=== PATIENT | male | born 1935 | race Caucasian/White ===

== ENCOUNTER 2020-11-25 15:00 | Emergency (ER) | payer MEDICARE, BC ==
--- NOTE | 2020-11-25 15:46 | EDM.PDOC ---
ED HPI GENERAL MEDICAL PROBLEM - General Chief Complaint: Bite:Animal, Insect Stated Complaint: POSSIBLE TICK BITE ON LT ARM Time Seen by Provider: 11/25/20 15:35 Source of Information: Reports: Patient, RN History Limitations: Reports: No Limitations - History of Present Illness INITIAL COMMENTS - FREE TEXT/NARRATIVE: 2 nights ago patient woke up with a very itchy arm. He scratched it he is not sure if he scratched something away or not. Today he noticed a very reddened circumference with a white center on his forearm. He is concerned for tick bite. He has done nothing for pain or swelling or redness at this point. Onset: Sudden Onset Date: 11/23/20 Duration: Day(s):, Getting Worse Location: Reports: Upper Extremity, Right Quality: Reports: Other (Itching/irritation) Severity: Moderate Improves with: Reports: None Worsens with: Reports: None Context: Reports: Trauma (Bug bite likely take due to rash formation) Associated Symptoms: Reports: No Other Symptoms Treatments DAY CARE ASSISTANT: Reports: Other (see below) (None) - Related Data Allergies Allergy/AdvReac Type Severity Reaction Status Date / Time codeine Allergy Nausea Verified 11/25/20 15:18 Home Meds: Home Meds traMADol [Take Home: traMADol 50 MG, 4 Tab Pack] 25 mg PO BEDTIME 02/01/15 [History] Furosemide 20 mg PO DAILY 01/06/18 [History] Doxycycline [Vibramycin] 100 mg PO BID 21 Days #42 cap 11/25/20 [Rx] Past Medical History Genitourinary History: Reports: Prostate Disorder, Renal Calculus Musculoskeletal History: Reports: Arthritis Endocrine/Metabolic History: Reports: Diabetes, Type II - Past Surgical History Male Surgical History: Reports: Prostatectomy Social & Family History - Tobacco Use Tobacco Use Status *Q: Never Tobacco User - Caffeine Use Caffeine Use: Reports: Tea ED ROS GENERAL - Review of Systems Review Of Systems: See Below Constitutional: Reports: No Symptoms HEENT: Reports: No Symptoms Respiratory: Reports: No Symptoms Cardiovascular: Reports: No Symptoms Endocrine: Reports: No Symptoms GI/Abdominal: Reports: No Symptoms Musculoskeletal: Reports: No Symptoms Skin: Reports: Pruritis, Rash, Erythema, Wound (Bug bite likely tick due to classic rash formation) Neurological: Reports: No Symptoms Psychiatric: Reports: No Symptoms Hematologic/Lymphatic: Reports: No Symptoms Immunologic: Reports: No Symptoms ED EXAM, ANIMAL BITE - Physical Exam Exam: See Below Course - Vital Signs Last Recorded V/S: Last Vital Signs Temp 36.2 C 11/25/20 15:16 Pulse Resp 18 11/25/20 15:16 BP 117/71 11/25/20 15:16 Pulse Ox Departure - Departure Time of Disposition: 15:57 Disposition: Home, Self-Care 01 Condition: Fair Clinical Impression: Tick bite - Discharge Information *PRESCRIPTION DRUG MONITORING PROGRAM REVIEWED*: Not Applicable *COPY OF PRESCRIPTION DRUG MONITORING REPORT IN PATIENT MAGGIE: Not Applicable Prescriptions: Doxycycline [Vibramycin] 100 mg PO BID 21 Days #42 cap Instructions: Tick Bite Information, Adult, [id number] Referrals: Parvez Rangel Sr, MD [Primary Care Provider] - Forms: ED Department Discharge Additional Instructions: Take doxycycline twice a day for 21 days. If area increases in redness, show signs of infection follow-up with primary care provider immediately. Care Plan Goals: Decreased risk of infection Sepsis Event Note (ED) - Evaluation Sepsis Screening Result: No Definite Risk - Focused Exam Vital Signs: Vital Signs Temp Resp BP 11/25/20 15:16 36.2 C 18 117/71 11/25/20 15:10 36.2 C 18 117/71 - Assessment/Plan Assessment:: Tick bite Plan: Doxycycline twice a day for 21 days
== END 2020-11-25 15:57 | disposition home or self-care (01) ==
LOC: JP.ED 15:00
DX: S40.862A Insect bite (nonvenomous) of left upper arm, initial encounter (principal); E11.9 Type 2 diabetes mellitus without complications; Z88.5 Allergy status to narcotic agent; W57.XXXA Bitten or stung by nonvenomous insect and other nonvenomous arthropods, initial encounter
CPT/HCPCS: 99282; 99283